=== PATIENT | female | born 1980 | race African-American/Black ===

== ENCOUNTER → 2024-12-08 13:48 | Outpatient (CLI) | payer OTHER, SELFPAY ==
--- NOTE | 2024-12-08 13:50 | DI.ECHO.S_ITS ---
[facility] : : [address] : : [place] : : [id number] : : Phone: [phone] Echocardiogram Report + + :Name: ILAN OWENS Study Date: 12/08/2024 Height: 62 in : :[facility] ReadingLocation: Weight: 220 lb : : Gender: Female BSA: 2.0 m2 : :: 1980 Age: 44 yrs BP: 140/90 mmHg: :Reason For Study: Angina : :Ordering Physician: PUSHPA BUSTILLOS Performed By: Juancarlos Reyna : :Referring: PUSHPA BUSTILLOS : + + Interpretation Summary - The left ventricular contractility is normal. Estimated ejection fraction is greater than 60% with no segmental wall motion abnormalities. No LVH. Normal diastolic function. - The right ventricular contractility is normal. - All cardiac chambers are of normal size. - No significant valvular abnormalities. - No obvious intracardiac shunts. - No obvious intracardiac masses nor thrombi. - Low right-sided filling pressures. - There is a circular hypoechogenic structure noted in the hepatic region suggestive of a hepatic cyst. Conclusion: Normal biventricular function with no significant valvular abnormalities. Procedure: A two-dimensional transthoracic echocardiogram with color flow and Doppler was performed. The study quality was technically adequate. There is no prior echocardiogram noted for this patient. The patient was in normal sinus rhythm during the exam. Left Ventricle: The left ventricle is normal in size. Left ventricular wall thickness is at the upper limits of normal. Left ventricular systolic function is normal. The ejection fraction is estimated to be 60-65%. There are no focal wall motion abnormalities. Normal diastolic function. Right Ventricle: The right ventricle is normal in size and function. Atria: The left atrial size is normal. Right atrial size is normal. There is no Doppler evidence for an interatrial shunt. Mitral Valve: The mitral valve leaflets appear to open well. There is no mitral valve stenosis. There is trace mitral regurgitation. Aortic Valve: The aortic valve is trileaflet. There is no aortic valve stenosis. No aortic regurgitation is present. Tricuspid Valve: The tricuspid valve leaflets are thin and pliable. There is trace tricuspid regurgitation. The right ventricular systolic pressure is estimated to be at least 21 mmHg based on an estimated right atrial pressure of 3 mm Hg. Pulmonic Valve: The pulmonic valve is not well seen, but is grossly normal. There is trace pulmonic regurgitation. Great Vessels: The aortic root is normal size. The ascending aorta is normal in size. The aortic arch could not be visualized. The pulmonary is not well visualized. The IVC is of normal diameter and collapses greater than 50% with a sniff. This suggests a low right atrial pressure of 3 mm Hg. Pericardium/ Pleura There is no pericardial effusion. MMode/2D Measurements & Calculations LVIDd: 3.8 cm LVOT diam: 2.0 cm LVIDs: 2.4 cm Ao root diam: 3.1 cm FS: 38.6 % asc Aorta Diam: 3.4 cm IVSd: 1.0 cm LVPWd: 0.97 cm LV licona. diameter/BSA (cm/m^2): 1.9 LV sys. diameter/BSA (cm/m^2): 1.2 LA A2 area: 14.0 cm2 RA long axis: 4.7 cm LA A4 area: 14.6 cm2 RA area: 8.4 cm2 LA length (vol): 4.7 cm RA vol: 12.7 ml LA vol: 37.0 ml RA : 6.4 ml/m2 LA vol index: 18.6 ml/m2 IVC diam: 1.2 cm RVD1 (basal): 1.7 cm RVD2 (mid): 1.4 cm TAPSE: 1.7 cm Doppler Measurements & Calculations Ao V2 max: 111.1 cm/sec LVOT Max Duke: 101.7 cm/sec Ao V2 mean: 87.7 cm/sec LV V1 max P.1 mmHg Ao max P.9 mmHg LV V1 VTI: 16.3 cm Ao mean P.3 mmHg DOREEN(I,D): 2.7 cm2 Ao V2 VTI: 18.5 cm DOREEN(V,D): 2.8 cm2 sev ratio: 0.88 DOREEN indexed to BSA (cm^2/m^2): 1.3 MV E max duke: 57.0 cm/sec TR max duke: 210.9 cm/sec MV A max duke: 72.0 cm/sec TR max P.8 mmHg MV E/A: 0.79 PA V2 max: 94.3 cm/sec Med Peak E' Duke: 8.0 cm/sec PA V2 mean: 56.0 cm/sec E/E' med: 7.1 PA mean P.5 mmHg Lat Peak E' Duke: 4.8 cm/sec PA pr(Accel): 30.2 mmHg E/E' lat: 11.8 E/e' average: 9.5 MV dec time: 0.15 sec SV(LVOT): 49.6 ml Reading Physician:[email or web address]
== END ==
LOC: ECHO 13:49
PROVIDERS: Referring Provider Internal Medicine; Visit Provider Internal Medicine
DX: I20.2 Refractory angina pectoris (principal)
CPT/HCPCS: 93306